=== PATIENT | male | born 1955 | race Caucasian/White ===

== ENCOUNTER → 2025-01-15 13:12 | Outpatient (REF) | payer MEDICARE, SELFPAY | LOC: SDSPAT 13:12 | PROVIDERS: ATTENDING PHYSICIAN Surgery; FAMILY PHYSICIAN Family Medicine | DX: K40.90 Unilateral inguinal hernia, without obstruction or gangrene, not specified as recurrent (principal); Z01.818 Encounter for other preprocedural examination | CPT/HCPCS: 36415; 93005 ==

== ENCOUNTER 2025-01-23 07:22 | Day surgery (SDC) | payer MEDICARE, SELFPAY ==
[2025-01-15 14:10] VITALS: BMI 28.4
[2025-01-23] VITALS (9 sets, daily range): BP systolic 126–163; BP diastolic 85–110; BMI 28.4
[2025-01-23] MEDS: NORMOSOL-R/PLASMALYTE-A 1000 IV (07:41)
[2025-01-23] MEDS: TYLENOL 1000 MG PO (07:42)
--- NOTE | 2025-01-23 08:16 | W.SUR.PREOP ---
Pre-Operative Surgical Note
-
I have examined this patient prior to the performance of the scheduled procedure.
The patient's condition is unchanged from the time of the current History and
Physical and the patient is able to undergo the scheduled procedure.
--- NOTE | 2025-01-23 08:16 | HP.FOC2 ---
Focused History & Physical
Chief Complaint
HPI:
Chief Complaint: This is a 69-year-old male who presents with a symptomatic left inguinal hernia
HPI / Indication for Planned Procedure: This is a 69-year-old male who presents with a symptomatic left inguinal hernia. Will plan for a robotic left inguinal hernia repair with mesh.
Relevant Past Medical History: Negative
Relevant Social History: Negative
Relevant Family History: Negative
Relevant Past Surgical History: Positive for (Prior open right inguinal hernia repair with mesh x 2)
Review of Systems
Review of Pertinent Systems: All Systems Negative
Medication
See Medication form for detailed medications: Yes
Medication List (including Herbals & OTC):
Cialis 1 tab PO DAILY 01/16/25
atorvastatin 10 mg tablet 10 mg PO Q48H 01/16/25
multivitamin 1 tab PO DAILY 01/16/25
tamsulosin 0.4 mg capsule 0.4 mg PO HS 01/16/25
Medications Reviewed: Yes
Allergies and Reactions
Patient has Allergies: No
Noted Allergies and Reactions:
Allergy/AdvReac Type Severity Reaction Status Date / Time
No Known Allergies Allergy Unverified 01/23/25 07:25
Pertinent Physical Exam
All Other Systems: Negative
Head/Neck: Normal
Diagnosis / Assessment
This is a 69-year-old male who presents with a symptomatic left inguinal hernia. Will plan for a robotic left inguinal hernia repair with mesh.
Plan / Procedure
This is a 69-year-old male who presents with a symptomatic left inguinal hernia. Will plan for a robotic left inguinal hernia repair with mesh.
Anesthesia/Sedation to be done by Anesthesia Provider: Yes
--- NOTE | 2025-01-23 09:58 | W.IMMPOSTOP ---
Surgical Immed Post Op Note
-
Primary Surgeon: Ravi Garrison MD
Assisting Surgeon: None
Pre-op Diagnosis: Left inguinal hernia
Post-op Diagnosis: Same
Procedure Performed: Robotic left inguinal hernia repair with mesh
Anesthesia Type: General
Specimen / Cultures: None
Estimated Blood Loss: 3 cc
Complications: None
Operative Findings: Moderate-sized direct inguinal hernia containing preperitoneal fat reduced completely, small indirect component. No cord lipoma. After achieving the critical view of the n.p.o. the space was reinforced with a large left Bard 3D
max mid weight uncoated polypropylene mesh.
--- NOTE | 2025-01-23 10:02 | OR.RPT ---
Operative Report
Operative Report
Patient Name: Andres Gonzalez
: 1955
Date of Operation: 01/23/2025
Preoperative Diagnosis: Reducible Inguinal hernia, left
Postoperative Diagnosis: Same
Procedure(s):
1. Robotic Inguinal Hernia Repair with mesh, left (CHANELL approach)
Surgeon(s):
Dr. Garrison
Frozen Food Selector(s):
ABRAHAN Dawson
Anesthesia: General
Estimated Blood Loss: 3 cc
Urine Output: None
Drains/Lines/Implants: Large 3D Max Bard mid weight uncoated polypropylene mesh
Specimens: None
Indication for surgery: The patient has a history of groin pain and noted on exam to have a Left inguinal Hernia(s). Following review of therapeutic options they have elected to undergo a minimally invasive repair.
Operative Findings: Moderate-sized direct inguinal hernia containing preperitoneal fat reduced completely, small indirect component. No cord lipoma. After achieving the critical view of the n.p.o. the space was reinforced with a large left Bard 3D
max mid weight uncoated polypropylene mesh.
Details of the operation:
The patient was brought to the Operating Room and placed in the supine position with the arms tucked. IV antibiotics were infused and Venodyne stockings placed. Following uneventful induction of general endotracheal anesthesia, an orogastric tube
was placed. The abdomen was prepped and draped in the usual sterile fashion. The abdomen was entered using a Veress technique which required 1 pass(es), pneumoperitoneum to 15 mmHg was obtained without difficulty. An 8mm trochar was passed through
the abdominal wall roughly 20 cm cephalad to the inguinal canal. We then confirmed that no inadvertent injury was made while passing the trocar or Veress needle. We then placed two additional 8 mm ports in the left upper and right upper quadrants.
We then docked the robot with a Prograsper in the left hand port and monopolar scissors in the right. On the right side mesh could be seen behind the peritoneum without any obvious recurrence. The left side was initially obscured by sigmoid colon
which was taken down, and epiploic appendage was in the direct space which was then reduced easily. We then began by creating a flap at the level of the ASIS laterally working our way medially to the medial umbilical fold. Staying onto the
peritoneum we were able to circumferentially dissect around the hernia sac and and peel it off of the underlying spermatic cord and testicular vessels, taking care to preserve them. Care was also taken to not injure the underlying sigmoid colon
which had a sliding component to the hernia sac. Medially we identified the midline pubis as well as Aftab's ligament and ensured to dissect 2 cm below the pubic rim over the bladder. After exposure of the entire myopectineal orifice we
identified and reduced: A medium sized direct inguinal hernia, a minuscule indirect inguinal hernia, no femoral hernia, and no cord lipoma. The direct defect was imbricated using a 2-0 V-Loc 180 suture anchoring it to Aftab's ligament.
We then fixated a large 3D max mesh with a 2-0 Vicryl stitch at coopers medially and superior laterally. The flap was then closed with a running 2-0 barbed monocryl suture ensuring that the tail was cut flush with the medial fat pad so that no
barbs were exposed. During the closure of the flap an Angiocath was inserted and 20 cc of quarter percent Marcaine was instilled. The area in the flap cavity was then evacuated of air confirming that the mesh was flush and there were no folds. All
needles and instruments were then removed and the robot was undocked. The abdomen was then desufflated, and pneumoperitoneum evacuated. All skin sites were then closed with 4-0 Monocryl followed by Dermabond. Counts were correct and overall, the
patient tolerated the procedure well and was taken to the Recovery Room postoperatively in stable condition.
I was the attending physician and performed the procedure with assistance of the PA above. The assistance of ABRAHAN Dawson was required due to the complexity of the procedure. During the procedure Suzy assisted with port placement, instrument
and needle exchanges, and closure of the wound. William was present for all portions of the case, excluding skin closure.
Ravi Garrison MD
[2025-01-23] MEDS: MOTRIN 600 MG PO (10:56)
== END 2025-01-23 11:35 | disposition home or self-care (01) ==
LOC: SDS 07:22
PROVIDERS: ATTENDING PHYSICIAN Surgery; FAMILY PHYSICIAN Family Medicine
DX: K40.90 Unilateral inguinal hernia, without obstruction or gangrene, not specified as recurrent (principal)
CPT/HCPCS: 49650; C1781